=== PATIENT | male | born 1960 | race Caucasian/White ===

== ENCOUNTER → 2016-08-05 | Outpatient (CLI) | payer OTHER ==
[~2016-08-05] MED LIST: HYDC25 PO; HYDR-389 PO; NRN600 PO
== END | disposition home or self-care (01) ==
LOC: C.LABPVFM 15:39
PROVIDERS: ATTEND Physician Assistant
DX: R25.1 Tremor, unspecified (principal)

== ENCOUNTER → 2016-10-20 | Outpatient (CLI) | payer OTHER ==
[2016-10-20 18:20] LABS: ALT/SGPT 33 U/L (12-78); AST/SGOT 20 U/L (15-37); BLOOD UREA NITROGEN 9 mg/dl (7-18); BUN/CREATININE RATIO 12.2 (10-20); CALCIUM 8.7 mg/dl (8.5-10.1); CARBON DIOXIDE 30 mmol/L (21-32); CHLORIDE 101 mmol/L (98-107); CREATININE 0.75 mg/dl (0.60-1.40); GLUCOSE 106 mg/dl (70-99); POTASSIUM 4.1 mmol/L (3.5-5.1); SODIUM 136 mmol/L (136-145)
[2016-10-20 18:23] LABS: ALB/GLOB RATIO 0.8 (0.9-2); ALKALINE PHOSPHATASE 75 U/L (45-117)
[2016-10-21 06:25] LABS: ESTIMATED AVERAGE GLUCOSE 140 mg/dl; HA1C FLAG Normal (Normal)
== END | disposition home or self-care (01) ==
LOC: C.LABPVFM 12:54
PROVIDERS: ATTEND Family Medicine
DX: R73.9 Hyperglycemia, unspecified (principal); R77.1 Abnormality of globulin

== ENCOUNTER → 2017-01-12 | Outpatient (CLI) | payer OTHER ==
[2017-01-12 17:52] LABS: CHOLESTEROL/HDL RATIO 3.4
[2017-01-12 18:09] LABS: RATIO 5.6 mcg/mg (0-30.0)
[2017-01-13 07:08] LABS: ESTIMATED AVERAGE GLUCOSE 140 mg/dl; HA1C FLAG Normal (Normal)
== END | disposition home or self-care (01) ==
LOC: C.LABPVFM 13:52
PROVIDERS: ATTEND Family Medicine
DX: R77.1 Abnormality of globulin (principal); E11.9 Type 2 diabetes mellitus without complications

== ENCOUNTER → 2017-04-19 | Outpatient (CLI) | payer OTHER | END | disposition home or self-care (01) | LOC: C.LABPVFM 13:16 | PROVIDERS: ATTEND Family Medicine | DX: R39.9 Unspecified symptoms and signs involving the genitourinary system (principal) ==

== ENCOUNTER → 2017-05-07 | Outpatient (CLI) | payer OTHER | END | disposition home or self-care (01) | LOC: C.LABPVFM 12:38 | PROVIDERS: ATTEND Family Medicine | DX: R39.9 Unspecified symptoms and signs involving the genitourinary system (principal); A49.8 Other bacterial infections of unspecified site ==

== ENCOUNTER → 2017-05-18 | Outpatient (CLI) | payer OTHER | END | disposition home or self-care (01) | LOC: C.LABPVFM 18:13 | PROVIDERS: ATTEND Nurse Practitioner | DX: R39.9 Unspecified symptoms and signs involving the genitourinary system (principal) ==

== ENCOUNTER → 2017-06-09 | Outpatient (CLI) | payer OTHER | END | disposition home or self-care (01) | LOC: C.LABPVFM 12:15 | PROVIDERS: ATTEND Nurse Practitioner | DX: R31.9 Hematuria, unspecified (principal) ==

== ENCOUNTER → 2017-06-09 | Outpatient (CLI) | payer OTHER | END | disposition home or self-care (01) | LOC: C.PATHSPEC 12:14 | PROVIDERS: ATTEND Nurse Practitioner | DX: R31.9 Hematuria, unspecified (principal) ==

== ENCOUNTER → 2017-06-29 | Outpatient (CLI) | payer OTHER | END | disposition home or self-care (01) | LOC: C.LABPVFM 13:07 | PROVIDERS: ATTEND Nurse Practitioner | DX: R31.9 Hematuria, unspecified (principal) ==

== ENCOUNTER → 2017-06-29 | Outpatient (CLI) | payer OTHER | END | disposition home or self-care (01) | LOC: C.PATHSPEC 13:06 | PROVIDERS: ATTEND Nurse Practitioner | DX: R31.9 Hematuria, unspecified (principal) ==

== ENCOUNTER → 2017-11-05 | Outpatient (CLI) | payer OTHER ==
[~2017-11-05] MED LIST changes: +CIPR-255 PO
[2017-11-05 17:50] LABS: CREATININE 0.75 mg/dl (0.60-1.40)
== END | disposition home or self-care (01) ==
LOC: C.LABPVFM 14:15
PROVIDERS: ATTEND Urology
DX: R31.9 Hematuria, unspecified (principal)

== ENCOUNTER → 2017-11-06 | Outpatient (CLI) | payer OTHER | END | disposition home or self-care (01) | LOC: C.PATHSPEC 17:07 | PROVIDERS: ATTEND Urology | DX: R31.9 Hematuria, unspecified (principal) ==

== ENCOUNTER 2023-03-01 12:14 | Inpatient (IN) ==
[2023-03-01] MEDS ORDERED: KETOROLAC TROMETHAMINE 15 MG/ML VIAL IV ONE (12:53)
[2023-03-01] MEDS ORDERED: MoRPHine SULFATE 10 MG/ML CARP/VIAL IV STA (12:53)
[2023-03-01] MEDS ORDERED: SODIUM CHLORIDE 0.9% 500 ML IV ONE (12:53)
[2023-03-01] MEDS ORDERED: ONDANSETRON INJ 2 MG/ML 2 ML VIAL IV STA (12:53)
--- NOTE | 2023-03-01 12:58 | Emergency Department Note ---
Impression & Plan Kidney stone on left side, Acute UTI, Nausea, Type 2 diabetes mellitus ED Provider Note Provider: Balaji Ibrahim MD DATE OF SERVICE: 03/01/2023 CHIEF COMPLAINT: Left flank pain HISTORY OF PRESENT ILLNESS: Patient is a 62-year-old gentleman history of hypertension, diabetes, essential tremor presenting here today complaining of pain in his left flank region. States a history of some UTIs but woke in the middle the night around 4 AM with pain in the left side. Pain with a little bit of nausea was reported but no other diffuse abdominal pain on the right side on the middle. States it hurts a bit when he urinates. Denies fever or chills. Chronic pain in the lower legs. Denies diarrhea. Denies blood in the urine at this time. Was treated for UTI a month ago. Denies chest pain or shortness of breath. PAST MEDICAL HISTORY: As noted above MEDICATIONS: Reviewed home medication list SOCIAL HISTORY: Non-smoker PHYSICAL EXAM: GENERAL: alert and oriented in no acute distress on stretcher Head: normocephalic and atraumatic EYES: No injection, discharge or icterus. NECK: Trachea midline. ENT: Mucous membranes pink and moist. LUNGS: Airway patent. No retractions HEART: Regular rate and rhythm. No chest wall tenderness ABDOMEN: Soft with tenderness to the left flank region. No significant middle or right-sided abdominal tenderness. SKIN: Acyanotic, warm, dry, without rashes EXTREMITIES: Without swelling, tenderness or deformity NEUROLOGICAL: No focal deficits. No aphasia. No facial droop or slurred speech. Ambulatory. PDMP was checked without noted issue. Patient's laboratory studies and imaging reviewed. Differential includes Renal colic, UTI, appendicitis, diverticulitis, mesenteric ischemia, aortic pathology, infections, inflammatory bowel disease, PUD, biliary pathology, as well as other pathologies. IMPRESSION/MEDICAL DECISION MAKING: Patient with some left flank discomfort. Question possible kidney stone versus given his history of UTIs possible infectious etiology. Lower suspicion for diverticulitis. No significant right-sided tenderness and doubt appendicitis or cholecystitis. Location does not seem to get of cardiac disease. Patient given submission of pain control here With IV morphine, Toradol, Zofran, and IV fluid. Blood obtained here with leukocytosis 16.3. No anemia. No significant electrolyte abnormality signs of renal dysfunction. No evidence of hepatitis or pancreatitis based on labs. Sent for CT scan to evaluate further and per radiology report with evidence of a 6 mm left ureteral calculus Stone without evidence of bowel obstruction or bowel wall thickening. Likely explains his pain. Leukocytosis could be reactive for with his history of UTIs, concerning of this could be infected. Patient is having a good bit of improvement of pain and nausea symptoms now. Urinalysis nitrate positive with leuk esterase concerning for infection. Do note some epithelials in the sample. Sent for culture. Discussed with the patient I would recommend that we monitor him given the infected urine and evidence of kidney stone in the hospital with a leukocytosis. Given a dose of Zosyn for broad coverage. Discussed with him and his he is agreeable to stay for observation and the hospitalist was contacted. Patient at this time does not appear septic and I do not requires emergent urological intervention at this time. DIAGNOSIS: acute UTI, left-sided kidney stone, type 2 diabetes, nausea DISPOSITION: Hospitalist will evaluate Patient was agreeable with this plan. Past Med/Surg History Medical History BPH with obstruction/lower urinary tract symptoms Renal lesion Nephrolithiasis Gout Allergic rhinitis CRPS (complex regional pain syndrome), lower limb Cyst of joint of left hand Dysuria Elevated serum globulin level Former smoker Mixed hyperlipidemia Parkinsonism Tarsal tunnel syndrome Vitamin D deficiency, unspecified Surgical History H/O local excision of skin lesion (09/12/20) Hx of foot surgery Family History Mother Breast cancer, Onset Age: 60 Father No problems noted. Brother No problems noted. Sister No problems noted. Other Has no children Denies family history of Ovarian cancer Prostate cancer Social History Smoking Status: Never smoker Tobacco Type: Cigarettes packs per day: 0.25; Cigarettes Per Day: 4 cigs/day; Second Hand Exposure: No; Do You Dip or Chew Tobacco: No; Hx Alcohol Use: No Hx Substance Use: No Preferred Language: [place] Islander Communication Ability: Effective Visual Impairment: No Limitations Hearing Ability: Normal Stand Up Forklift Operator Required: No Beliefs That Will Affect Care: None marital status: Single Current Living Situation: Alone current occupational status: disabled How many Children do You have: 0 Feels Safe at Home: Yes Childhood Exposure to Second-Hand Smoke: No Diet: regular caffeine: No during the past year weight has: remained stable Dental Care, Regularly: Yes Physical Activity Frequency: Daily Seatbelt Use: always Sunscreen Use: No Do you think of yourself as: straight/heterosexual Gender Identity: Male Assistive Devices: Brace/Splint/Immobilizer and Crutches Allergies Allergies Allergy/AdvReac Type Severity Reaction Status Date / Time No Known Drug Allergies Allergy Verified 01/29/23 14:03 Home Meds Previous Rx's Medication Instructions Recorded lancing device with lancets kit #1 ea 12/17/18 (Contix Lancing Device kit) mirabegron 50 mg tablet,extended 50 mg PO DAILY #30 tabs 08/08/20 release 24 hr (Myrbetriq) oxybutynin chloride 10 mg 10 mg PO DAILY #30 tabs 10/05/20 tablet,extended release 24 hr (Ditropan XL) blood sugar diagnostic (Phase Vision #300 ea 06/25/21 Ultra Test strips) lancets 33 gauge (Contix #300 ea 06/25/21 Lancets) empagliflozin 10 mg tablet 10 mg PO DAILY #90 tabs 04/16/22 (Jardiance) escitalopram oxalate 10 mg tablet See Rx Instructions .Route 04/16/22 .COMPLEX #135 tabs triamterene 37.5 See Rx Instructions .Route 04/16/22 mg-hydrochlorothiazide 25 mg tablet .COMPLEX #90 tabs metformin 500 mg tablet,extended 500 mg PO BID #180 tabs 04/21/22 release 24 hr gabapentin 300 mg capsule 900 mg (3 x 300 mg) PO TID 90 days 07/28/22 #810 caps cephalexin 500 mg capsule 500 mg PO BID #10 caps 09/22/22 simvastatin 10 mg tablet 10 mg PO QPM #90 tabs 09/30/22 hydroxyzine HCl 10 mg tablet 10 - 20 mg (1 - 2 x 10 mg) PO TID 10/29/22 PRN anxiety #180 tabs primidone 50 mg tablet 100 mg (2 x 50 mg) PO TID 90 days 01/02/23 #540 tabs propranolol 160 mg capsule,24 160 mg PO HS #90 caps 01/02/23 hr,extended release Results & Data (ED) Vital Signs Vital Signs - 24 hr 03/01/23 12:20 03/01/23 15:00 03/01/23 15:50 Temperature 36.7 C Temperature Source Temporal Artery Scan Pulse Rate 78 Pulse Rate [Apical] 69 Respiratory Rate 18 16 Respiratory Effort / Characteristics Non-Labored Spontaneous Respiratory Depth Normal Blood Pressure 169/85 H Blood Pressure [Left Arm] 113/59 L Blood Pressure Mean 113 Blood Pressure Mean [Left Arm] 77 Blood Pressure Position Sitting Pulse Oximetry 95 93 93 Oxygen Delivery Method Room Air Room Air Room Air Sepsis Recent Fever Within 48 Hours No Sepsis New/Unexplained Change in Mental Status No Sepsis Action Taken by Nursing No Action Required Laboratory Data 03/01/23 12:37 03/01/23 12:37 Lab Results 03/01/23 03/01/23 Range/Units 12:37 15:08 WBC 16.30 H (4.8-10.8) K/ul RBC 5.27 (4.70-6.10) M/uL Hgb 15.9 (14.0-18.0) g/dl Hct 47.7 (42.0-52.0) % MCV 90.5 (80.0-100.0) fL MCH 30.2 (25.0-34.0) pg MCHC 33.3 (32.0-36.0) g/dL RDW Std Deviation 44.3 (36.4-46.3) fL RDW Coeff of Chevy 13.2 (11.5-14.5) % Plt Count 228 (130-400) K/uL MPV 10.0 (9.4-12.4) fL Immature Gran % (Auto) 0.5 % Neut % (Auto) 83.1 % Lymph % (Auto) 7.2 % Fleming % (Auto) 8.3 % Eos % (Auto) 0.6 % Baso % (Auto) 0.3 % Neut # (Auto) 13.55 H (1.40-6.50) K/uL Lymph # (Auto) 1.18 L (1.20-3.40) K/uL Fleming # (Auto) 1.35 H (0.11-0.59) K/uL Eos # (Auto) 0.09 (0.00-0.50) K/uL Baso # (Auto) 0.05 (0.00-0.20) K/uL Immature Gran # (Auto) 0.08 (0.01-0.20) K/uL Sodium 135 L (136-145) mmol/L Potassium 3.9 (3.5-5.1) mmol/L Chloride 99 (98-107) mmol/L Carbon Dioxide 30 (21-32) mmol/L Anion Gap 6 (3-11) BUN 19 (6-23) mg/dl Creatinine 0.78 (0.6-1.4) mg/dl Est Cr Clr Drug Dosing 138.4 ml/min Est GFR ( Amer) 110.6 ml/min Est GFR (Non-Af Amer) 95.4 ml/min BUN/Creatinine Ratio 24.4 H (10-20) Glucose 165 H (70-99(Fasting)) mg/dl Calcium 9.5 (8.6-10.3) mg/dl Total Bilirubin 0.8 (0.2-1.0) mg/dl AST 15 (13-39) U/L ALT 16 (7-52) U/L Alkaline Phosphatase 72 (34-104) U/L Total Protein 7.7 (6.0-8.3) gm/dl Albumin 4.3 (3.4-5.0) gm/dl Globulin 3.4 (2.5-4.0) gm/dl Albumin/Globulin Ratio 1.3 (0.9-2) Lipase 12 (11-82) U/L Urine Color Yellow Urine Appearance Turbid A (Clear) Urine pH 6.5 (4.5-7.5) Ur Specific Barnes > 1.045 H (1.000-1.030) Urine Protein 1+ H (Negative) Urine Glucose (UA) Trace H (Negative) Urine Ketones Negative (Negative) Urine Blood 2+ H (Negative) Urine Nitrite Positive A (Negative) Urine Bilirubin Negative (Negative) Urine Urobilinogen Negative (Negative) Ur Leukocyte Esterase 3+ H (Negative) Urine WBC (Auto) >30 H (0-5) /hpf Urine RBC (Auto) 10-30 H (0-4) /hpf U Hyaline Cast (Auto) 1-5 (0-5) /lpf U Epithel Cells (Auto) >30 H (0-5) /lpf Urine Bacteria (Auto) 4+ H (Negative) Urine Yeast Not Reportable Administered Medications Piperacillin Sod/Tazobactam Sod (Zosyn) 4.5 gm in 100 mls @ 200 mls/hr IV NOW ONE Stop: 03/01/23 16:22 Last Admin: 03/01/23 16:08 Dose: 200 mls/hr Documented By: QIAN Sodium Chloride (Nss) 1,000 mls @ 999 mls/hr IV .Q1H1M ONE Stop: 03/01/23 16:55 Last Admin: 03/01/23 16:09 Dose: 999 mls/hr Documented By: QIAN Discontinued Medications Sodium Chloride (Nss) 500 mls @ 999 mls/hr IV .Q31M ONE Stop: 03/01/23 13:23 Last Infusion: 03/01/23 14:00 Dose: Infused Documented By: Admin: 03/01/23 13:08 Dose: 999 mls/hr Documented By: ANTONY Sodium Chloride (Nss) 1,000 mls @ 999 mls/hr IV .Q1H1M ONE Stop: 03/01/23 14:35 Last Admin: 03/01/23 13:40 Dose: 999 mls/hr Documented By: ANTONY Ioversol (Optiray 320 500ml) 88 ml IV ONCE ONE Stop: 03/01/23 13:30 Last Admin: 03/01/23 13:30 Dose: 88 ml Documented By: DEBI Ketorolac Tromethamine (Ketorolac Tromethamine 15 Mg/Ml Vial) 10 mg IV NOW ONE Stop: 03/01/23 12:54 Last Admin: 03/01/23 13:08 Dose: 10 mg Documented By: ANTONY Morphine Sulfate (Morphine Sulfate 10 Mg/Ml Carp/Vial) 6 mg IV NOW STA Stop: 03/01/23 12:54 Last Admin: 03/01/23 13:08 Dose: 6 mg Documented By: ANTONY Ondansetron HCl (Ondansetron Inj 2 Mg/Ml 2 Ml Vial) 4 mg IV NOW STA Stop: 03/01/23 12:54 Last Admin: 03/01/23 13:08 Dose: 4 mg Documented By: ANTONY Imaging Data Radiologist's Impression: Abdomen/Pelvis CT 03/01/23 12:[address] WITH IV CONTRAST CT DOSE: 1479.25 mGy.cm HISTORY: Acute left-sided flank pain left flank pain, ?stone TECHNIQUE: Multiaxial CT images of the abdomen and pelvis were performed following the IV administration of 88 cc of Optiray, A dose lowering technique was utilized adhering to the principles of ALARA. COMPARISON STUDY: CT 10/31/2019 common MRI abdomen 11/29/2019. FINDINGS: Mild cardiomegaly. Clear lung bases. There is no free air. Unremarkable spleen, pancreas and adrenal glands. Cortical cholelithiasis. Unremarkable liver. Patent portal vein. There are several nonobstructing calculi within the right kidney measuring up to 4 mm. Delayed left-sided nephrogram with [id number] hydroureteronephrosis secondary to an obstructing 5 x 6 x 6 mm ureteral calculus at the level of L3. There are a few scattered unchanged cysts of the kidneys measuring up to 1.7 cm on the left. Mild urothelial thickening of the left renal collecting system and ureter. Urinary bladder wall thickening with partial distention. Mild prostatomegaly. Atherosclerosis of the aorta. No lymphadenopathy. No bowel obstruction or bowel wall thickening. No ascites or mesenteric inflammation. Moderate fecal retention. Normal appendix. No acute fracture. Anterolisthesis L4 on L5 of 1.7 cm, likely secondary to chronic facet arthrosis. 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 Benign-appearing sclerotic changes of the upper sacrum. IMPRESSION: 1. Mild to moderate left-sided hydroureteronephrosis with delayed nephrogram secondary to an obstructing 6 mm calculus of the left ureter at the level of L3. 2. Nonobstructing right nephrolithiasis. 3. No bowel obstruction or bowel wall thickening. 4. Additional findings as above. ACT 112: Negative or not required by law. The above report was generated using voice recognition software. It may contain grammatical, syntax or spelling errors. Electronically signed by: Uri Cohen M.D. 03/01/2023 1:48 PM Discharge Plan Visit Data Chief Complaint: Flank Pain Stated Complaint: SIDE/FLANK PAIN ED Provider: Balaji Ibrahim Discharge Problem: Kidney stone on left side, Acute UTI, Nausea, Type 2 diabetes mellitus Patient Disposition: Being Evaluated by Hospitalist Forms Stand Alone Forms: My [facility] Prescriptions Prescriptions: No Action (DME) lancing device with lancets [OneTouch DelmySBX Lanc Device] kit See Dose Instructions .ROUTE .MEDSUPPLY Qty: 1 0RF Dose Instruction: As directed Rx Instructions: As directed oxybutynin chloride [Ditropan XL] 10 mg tablet extended release 24hr 10 mg PO DAILY Qty: 30 2RF (DME) OneTouch Ultra Test Strip See Rx Instructions .Route Qty: 300 3RF Rx Instructions: TID and prn Dx:E11.9 (DME) lancets [OneTouch Delica Lancets] 33 gauge misc See Dose Instructions .ROUTE .MEDSUPPLY Qty: 300 3RF Dose Instruction: As directed Rx Instructions: Test blood sugar TID and prn Jardiance 10 mg tablet 10 mg PO DAILY Qty: 90 3RF triamterene-hydrochlorothiazid 37.5-25 mg tablet See Rx Instructions .ROUTE .COMPLEX Qty: 90 3RF Dose Instruction: TAKE 1 TABLET BY MOUTH EVERY DAY Rx Instructions: TAKE 1 TABLET BY MOUTH EVERY DAY escitalopram oxalate 10 mg tablet See Rx Instructions .ROUTE .COMPLEX Qty: 135 3RF Dose Instruction: TAKE 1 AND 1/2 TABLET BY MOUTH ONCE DAILY. Rx Instructions: TAKE 1 AND 1/2 TABLET BY MOUTH ONCE DAILY. metformin 500 mg tablet extended release 24 hr 500 mg PO BID Qty: 180 3RF gabapentin 300 mg capsule 900 mg PO TID 90 Days Qty: 810 3RF simvastatin 10 mg tablet 10 mg PO QPM Qty: 90 3RF hydroxyzine HCl 10 mg tablet 10 - 20 mg PO TID PRN (Reason: anxiety) Qty: 180 3RF Myrbetriq 50 mg tablet extended release 24 hr 50 mg PO DAILY Qty: 30 1RF primidone 50 mg tablet 100 mg PO TID 90 Days Qty: 540 3RF propranolol 160 mg capsule,extended release 24 hr 160 mg PO HS Qty: 90 3RF cephalexin 500 mg capsule 500 mg PO BID Qty: 10 0RF Referrals Referrals: You Robledo DO [Primary Care Provider] -
[2023-03-01 13:04] LABS: Basophils # (auto) 0.05 K/uL (0.00-0.20); Basophils % (auto) 0.3 %; Eosinophils # (auto) 0.09 K/uL (0.00-0.50); Eosinophils % (auto) 0.6 %; Hematocrit (blood only) 47.7 % (42.0-52.0); Hemoglobin 15.9 g/dl (14.0-18.0); Immature Granulocytes # (auto) 0.08 K/uL (0.01-0.20); Immature Granulocytes % (auto) 0.5 %; Lymphocytes # (auto) 1.18 K/uL (1.20-3.40); Lymphocytes % (auto) 7.2 %; Mean Corpuscular Hemoglobin 30.2 pg (25.0-34.0); Mean Corpuscular Hgb Conc 33.3 g/dL (32.0-36.0); Mean Corpuscular Volume 90.5 fL (80.0-100.0); Monocytes # (auto) 1.35 K/uL (0.11-0.59); Monocytes % (auto) 8.3 %; Neutrophils # (auto) 13.55 K/uL (1.40-6.50); Neutrophils % (auto) 83.1 %; Platelet Count 228 K/uL (130-400); RDW Coefficient of Variation 13.2 % (11.5-14.5); RDW Standard Deviation 44.3 fL (36.4-46.3); Red Blood Count 5.27 M/uL (4.70-6.10)
[2023-03-01 13:15] LABS: Albumin Globulin Ratio 1.3 (0.9-2); Albumin Level 4.3 gm/dl (3.4-5.0); BUN Creatinine Ratio 24.4 (10-20); Bilirubin,Total 0.8 mg/dl (0.2-1.0); Calcium 9.5 mg/dl (8.6-10.3); Creatinine Clr Calc Pharmacy 138.4 ml/min; Est GFR (African American) 110.6 ml/min; Est GFR (Non-African American) 95.4 ml/min; Globulin 3.4 gm/dl (2.5-4.0); Potassium 3.9 mmol/L (3.5-5.1); Total Protein 7.7 gm/dl (6.0-8.3)
[2023-03-01] MEDS ORDERED: OPTIRAY 320 500ml IV ONE (13:29)
[2023-03-01] MEDS ORDERED: SODIUM CHLORIDE 0.9% 1,000 ML IV ONE ×2 (13:35→15:55)
--- NOTE | 2023-03-01 13:50 | CT Scan Report ---
ABDOMEN AND PELVIS CT WITH IV CONTRAST CT DOSE: 1479.25 mGy.cm HISTORY: Acute left-sided flank pain left flank pain, ?stone TECHNIQUE: Multiaxial CT images of the abdomen and pelvis were performed following the IV administrat ion of 88 cc of Optiray, A dose lowering technique was utilized adhering to the principles of ALARA. COMPARISON STUDY: CT 10/31/2019 common MRI abdomen 11/29/2019. FINDINGS: Mild cardiomegaly. Clear lung bases. There is no free air. Unremarkable spleen, pancreas an d adrenal glands. Cortical cholelithiasis. Unremarkable liver. Patent portal vein. There are several nonobstructing calculi within the right kidney measuring up to 4 mm. Delayed left-sided nephrogram wi th [id number] hydroureteronephrosis secondary to an obstructing 5 x 6 x 6 mm ureteral calculus at the level of L3. There are a few scattered unchanged cysts of the kidneys measuring up to 1.7 cm o n the left. Mild urothelial thickening of the left renal collecting system and ureter. Urinary bladde r wall thickening with partial distention. Mild prostatomegaly. Atherosclerosis of the aorta. No lymp hadenopathy. No bowel obstruction or bowel wall thickening. No ascites or mesenteric inflammation. Moderate fecal retention. Normal appendix. No acute fracture. Anterolisthesis L4 on L5 of 1.7 cm, likely secondary t o chronic facet arthrosis. 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 Benign-appearing sclerotic changes of the upper sacrum. IMPRESSION: 1. Mild to moderate left-sided hydroureteronephrosis with delayed nephrogram secondary to an obstruct ing 6 mm calculus of the left ureter at the level of L3. 2. Nonobstructing right nephrolithiasis. 3. No bowel obstruction or bowel wall thickening. 4. Additional findings as above. ACT 112: Negative or not required by law. The above report was generated using voice recognition software. It may contain grammatical, syntax o r spelling errors. Electronically signed by: Uri Cohen M.D. 03/01/2023 1:48 PM
[2023-03-01 15:25] LABS: Appearance Urine Turbid (Clear); Bacteria Urine Automated 4+ (Negative); Bilirubin Urine Negative (Negative); Blood Urine 2+ (Negative); Color Urine Yellow; Epithelial Cell Urine Auto >30 /lpf (0-5); Glucose Urine UA Trace (Negative); Ketones Urine Negative (Negative); Leukocyte Esterase Urine 3+ (Negative); Nitrite Urine Positive (Negative); Protein Urine 1+ (Negative); Specific Gravity Urine > 1.045 (1.000-1.030); Urobilinogen Urine Negative (Negative); WBC Urine Automated >30 /hpf (0-5); pH Urine 6.5 (4.5-7.5)
[2023-03-01] MEDS ORDERED: PIPERACILLIN/TAZOBACTAM 4.5 GM/100 ML BAG IV ONE (15:53)
--- NOTE | 2023-03-01 16:07 | History & Physical Report ---
Date of Service March 01, 2023 Assessment & Plan (1) Kidney stone on left side: Plan: Acute onset of sharp, left-sided flank pain that woke him from sleep at 0400 on 03/01 Hx of kidney stones Leukocytosis at 16.30; afebrile Abdomen/pelvic CT revealed obstructing 6 mm calculus of the left ureter; mildmoderate left-sided hydroureteronephrosis Reach out to urology Plan is to have stent placed with Dr. Smith on 03/01 Keep patient n.p.o. for now Acetaminophen 650 mg p.o. q4h as needed for pain 13 Dilaudid 0.51.0 IV q4h as needed for breakthrough pain Urine strainer ordered Continue daily oxybutynin Continue IV fluids; Plasma-Lyte at 100mL/hr x 2 Appreciate urology consult A.m. CBC, BMP, A1c (2) Acute UTI: Plan: Clinically, patient endorses burning with urination UA positive on arrival Leukocytosis at 16.30; afebrile Past urine cultures that showed E. coli with some resistance to beta-lactams and fluoroquinolones Started on Zosyn 4.5 g IV in the ED Switch to ceftriaxone 2 g IV daily; antibiotics de-escalated as patient does not appear septic, and is having minimal urinary discomfort (3) Type 2 diabetes mellitus: Plan: Last A1c 7.2% on 09/26/2022 Patient reports he has been on Jardiance for the past 2 years Hold metformin, Jardiance Continue gabapentin for neuropathy BSG ACHS; q6h while NPO Lantus 11u BID SSI w/ goal range 110-150mg/dL, CF 20, carb ratio 10 N.p.o. now, then advance to T2DM diet as tolerated Adjust regimen as needed AM A1c (4) Nausea: Plan: Zofran 4 mg IV q6h as needed for nausea (5) Essential tremor: Plan: Continue primidone (6) Anxiety: Plan: Continue escitalopram Continue hydroxyzine as needed Plan [facility]position: [facility] Full code Keep n.p.o. prior to stent placement VTE PPx: SCDs (will defer chemical DVT PPx until after stent placement) History of Present Illness Chief Complaint: L-sided flank pain Primary Care Provider: DO Librado Khanna is a 62-year-old male with PMH of anxiety, essential tremor, obesity, diabetes, and hypertension syndrome. He presented for acute onset of left flank pain that woke him up at 0400 on 03/01. He describes the pain as >10/10 at its worst; sharp, stabbing pain that is constant. No radiation. He took 1 Tylenol 500 mg this morning. Pain is exacerbated when lying down and sitting still; better with walking. Hx of kidney stones in the past, but he cannot recall when the last kidney stone was. No history of urologic intervention such as lithotripsy or stenting. No changes in diet. He reports he does not eat a very salty diet. He has not had anything to eat today. He reports he is took all of his morning medications. Of note, he has a history of diabetes and has been taking Jardiance for the past 2 years. History of diabetes on Jardiance x 2 years. He denies history of smoking, tobacco use, alcohol use, vaping, and recreational drug use. Mild hypertension at 113/59 at time of admission; vitals otherwise stable. ED course: Morphine 6 mg IV Toradol 10 mg IV Zofran 4 mg IV Zosyn 4.5 g IV NSS 2500 mL ROS: Patient endorses chills, nausea, bloating, burning with urination, neuropathy (ongoing) Patient denies fever, sweating, CP, pleuritic CP, vomiting, diarrhea, hematuria, urinary retention, saddle anesthesia. Allergies Allergy/AdvReac Type Severity Reaction Status Date / Time No Known Drug Allergies Allergy Verified 01/29/23 14:03 Home Medications Medication Instructions Recorded Confirmed Type lancing device with lancets kit #1 ea 12/17/18 01/29/23 Rx ([facility] Lancing Device kit) mirabegron 50 mg tablet,extended 50 mg PO DAILY #30 tabs 08/08/20 03/01/23 Rx release 24 hr (Myrbetriq) oxybutynin chloride 10 mg 10 mg PO DAILY #30 tabs 10/05/20 03/01/23 Rx tablet,extended release 24 hr (Ditropan XL) blood sugar diagnostic ([employer] #300 ea 06/25/21 01/29/23 Rx Ultra Test strips) lancets 33 gauge ([facility] #300 ea 06/25/21 01/29/23 Rx Lancets) empagliflozin 10 mg tablet 10 mg PO DAILY #90 tabs 04/16/22 03/01/23 Rx (Jardiance) escitalopram oxalate 10 mg tablet See Rx Instructions .Route 04/16/22 03/01/23 Rx .COMPLEX #135 tabs triamterene 37.5 See Rx Instructions .Route 04/16/22 03/01/23 Rx mg-hydrochlorothiazide 25 mg tablet .COMPLEX #90 tabs metformin 500 mg tablet,extended 500 mg PO BID #180 tabs 04/21/22 03/01/23 Rx release 24 hr gabapentin 300 mg capsule 900 mg (3 x 300 mg) PO TID 90 days 07/28/22 03/01/23 Rx #810 caps simvastatin 10 mg tablet 10 mg PO QPM #90 tabs 09/30/22 03/01/23 Rx hydroxyzine HCl 10 mg tablet 10 - 20 mg (1 - 2 x 10 mg) PO TID 10/29/22 03/01/23 Rx PRN anxiety #180 tabs primidone 50 mg tablet 100 mg (2 x 50 mg) PO TID 90 days 01/02/23 03/01/23 Rx #540 tabs propranolol 160 mg capsule,24 160 mg PO HS #90 caps 01/02/23 03/01/23 Rx hr,extended release Past Med/Surg History Medical History BPH with obstruction/lower urinary tract symptoms Renal lesion Nephrolithiasis Gout Allergic rhinitis CRPS (complex regional pain syndrome), lower limb Cyst of joint of left hand Dysuria Elevated serum globulin level Former smoker Quit 1994 Mixed hyperlipidemia Parkinsonism Tarsal tunnel syndrome Vitamin D deficiency, unspecified Surgical History H/O local excision of skin lesion (09/12/20) 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 Brother No problems noted. Sister No problems noted. Other Has no children Denies family history of Ovarian cancer Prostate cancer Social History Smoking Status: Former smoker Tobacco Type: Cigarettes packs per day: 0.25; Cigarettes Per Day: 4 cigs/day; Second Hand Exposure: No; Do You Dip or Chew Tobacco: No; Hx Alcohol Use: No Hx Substance Use: No Preferred Language: Georgian Communication Ability: Effective Visual Impairment: No Limitations Hearing Ability: Normal Applied Psychology Teacher Required: No Beliefs That Will Affect Care: None marital status: Single Current Living Situation: Alone current occupational status: disabled How many Children do You have: 0 Feels Safe at Home: Yes Childhood Exposure to Second-Hand Smoke: No Diet: regular caffeine: No during the past year weight has: remained stable Dental Care, Regularly: Yes Physical Activity Frequency: Daily Seatbelt Use: always Sunscreen Use: No Do you think of yourself as: straight/heterosexual Gender Identity: Male Assistive Devices: Brace/Splint/Immobilizer and Crutches Review of Systems Review of Systems: See HPI above Physical Exam Physical Exam: General: no acute distress; pleasant affect; diaphoretic; non-toxic appearing; well-nourished; cooperative HEENT: normocephalic, atraumatic; no scleral icterus; moist mucus membrane; vision and hearing grossly intact Neck: supple; no lymphadenopathy; trachea midline Skin: warm, dry without signs of tenting; no cyanosis; no rashes, bruising, lesions, or erythema noted CV: chest wall NTP; RRR; S1/S2 normal; no murmurs/rubs/gallops; pulses intact and symmetric at radial, DP, and PT Lungs: no acute respiratory distress; symmetrical chest wall expansion; clear breath sounds across all lung bullock w/o adventitious sounds; no wheezing ABD: Soft, NTP; BS present; no rebound/guarding; no ascites; mild distention secondary to body habitus; negative CVA tenderness bilaterally; left flank NTP MSK: no tics or fasciculations; no edema noted in the LEs b/l, nonerythematous Neuro: A&Ox3; normal mood and affect; fluent speech Results & Data Results & Data Vital Signs (Past 12 Hours) Vital Signs Temp Pulse Pulse Resp BP BP Pulse Ox 03/01/23 15:50 69 16 113/59 L 93 03/01/23 15:00 93 03/01/23 12:20 36.7 C 78 18 169/85 H 95 O2 Del Method 03/01/23 15:50 Room Air 03/01/23 15:00 Room Air 03/01/23 12:20 Room Air Laboratory Results Abnormal lab results 03/01/23 03/01/23 Range/Units 12:37 15:08 WBC 16.30 H (4.8-10.8) K/ul Neut # (Auto) 13.55 H (1.40-6.50) K/uL Lymph # (Auto) 1.18 L (1.20-3.40) K/uL [place] # (Auto) 1.35 H (0.11-0.59) K/uL Sodium 135 L (136-145) mmol/L BUN/Creatinine Ratio 24.4 H (10-20) Glucose 165 H (70-99(Fasting)) mg/dl Urine Appearance Turbid A (Clear) Ur Specific [place] > 1.045 H (1.000-1.030) Urine Protein 1+ H (Negative) Urine Glucose (UA) Trace H (Negative) Urine Blood 2+ H (Negative) Urine Nitrite Positive A (Negative) Ur Leukocyte Esterase 3+ H (Negative) Urine WBC (Auto) >30 H (0-5) /hpf Urine RBC (Auto) 10-30 H (0-4) /hpf U Epithel Cells (Auto) >30 H (0-5) /lpf Urine Bacteria (Auto) 4+ H (Negative) Diagnostic Findings Abdomen/Pelvis CT 03/01/23 12:[address] WITH IV CONTRAST CT DOSE: 1479.25 mGy.cm HISTORY: Acute left-sided flank pain left flank pain, ?stone TECHNIQUE: Multiaxial CT images of the abdomen and pelvis were performed following the IV administration of 88 cc of Optiray, A dose lowering technique was utilized adhering to the principles of ALARA. COMPARISON STUDY: CT 10/31/2019 common MRI abdomen 11/29/2019. FINDINGS: Mild cardiomegaly. Clear lung bases. There is no free air. Unremarkable spleen, pancreas and adrenal glands. Cortical cholelithiasis. Unremarkable liver. Patent portal vein. There are several nonobstructing calculi within the right kidney measuring up to 4 mm. Delayed left-sided nephrogram with [id number] hydroureteronephrosis secondary to an obstructing 5 x 6 x 6 mm ureteral calculus at the level of L3. There are a few scattered unchanged cysts of the kidneys measuring up to 1.7 cm on the left. Mild urothelial thickening of the left renal collecting system and ureter. Urinary bladder wall thickening with partial distention. Mild prostatomegaly. Atherosclerosis of the aorta. No lymphadenopathy. No bowel obstruction or bowel wall thickening. No ascites or mesenteric inflammation. Moderate fecal retention. Normal appendix. No acute fracture. Anterolisthesis L4 on L5 of 1.7 cm, likely secondary to chronic facet arthrosis. 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 Benign-appearing sclerotic changes of the upper sacrum. IMPRESSION: 1. Mild to moderate left-sided hydroureteronephrosis with delayed nephrogram secondary to an obstructing 6 mm calculus of the left ureter at the level of L3. 2. Nonobstructing right nephrolithiasis. 3. No bowel obstruction or bowel wall thickening. 4. Additional findings as above. ACT 112: Negative or not required by law. The above report was generated using voice recognition software. It may contain grammatical, syntax or spelling errors. Electronically signed by: Uri Cohen M.D. 03/01/2023 1:48 PM Code Status & VTE Plan Code Status Full code VTE Prophylaxis Plan VTE Prophylaxis will be ordered: Yes Supervising Physician Co-Signing Physician Notes Patient seen and examined, chart reviewed, case discussed with Julien Streeter, PAC and I agree with the assessment and plan as above except as otherwise noted Labs and images reviewed Librado is a 62-year-old male with a past medical history of type 2 diabetes, Tinoco's disease, essential tremor who presents for ongoing pain and an obstructive hydronephrosis due to 6 mm calculus without ANGE. He was recommended for medical management due to medical comorbidities/DM2 and possible underlying UTI. He is seen at the bedside, he reports he has had UTIs in the past with burning/hematuria although does not feel like he has this currently. Mostly has flank pain which is greatly improved after receiving pain control. He denies hematuria, dysuria, polyuria recently. Denies fever/chills/sweats. No lightheadedness or dizziness. Diminished appetite due to pain and he has not eaten anything since yesterday evening. No chest pain or chest pressure. No leg swelling. Mild LLQ TTP without rebound/guarding post-morphine. Pain was 10/10 earlier, is down to 24 and tolerable at time of admitting assessment. CTA/P: Mild to moderate left-sided hydro, obstructing 6 mm calculus at the left ureter. Nonobstructing right nephrolithiasis. Obstructing left nephrolithiasis with hydronephrosis: 6 mm calculus. Urology consulted, anticipate stent placement tonight. Associated suspected ANGE, patient is not toxic and is not septic appearing but does have a leukocytosis and reasonable to cover with empiric antibiotics. Given Zosyn in the ER due to slightly increased risk with age and comorbid diabetes, prior cultures reviewed and has had multiple E. coli UTIs all of these have been sensitive to Rocephin, resistant to fluoroquinolone. As he is not toxic appearing, no history of MDRO, is not febrile will de-escalate to Rocephin for stone associated complicated UTI. UCx pending. No ANGE. Hyperglycemic at 165, metformin/empagliflozin held patient converted to basal bolus weight-based while inpatient. Basal dose reduced 30% while NPO. If patient has recurrent UTIs outside of stones alternative antiglycemic dapagliflozin reasonable target due to risk of recurrent UTIs. Agree with assessment and management above PG Care Time/CCT Total # of Minutes Spent Total Time Spent with Patient: Total time spent is greater than 50% in coordination of care (as documented) at patient's floor/unit and/or counseling patient: C[place] [address] INT INP/OBS CARE 2/55MIN Patient Type Established Medical Decision Making Moderate Complexity Diagnoses Kidney stone on left side N20.0 Acute UTI N39.0 Type 2 diabetes mellitus E11.9 Nausea R11.0 Essential tremor G25.0 Anxiety F41.9
[2023-03-01] MEDS ORDERED: GLUCAGON FOR INJ 1 MG VIAL SQ PRN (17:02)
[2023-03-01] MEDS ORDERED: GLUCOSE 40% GEL 15 GM TUBE PO PRN (17:02)
[2023-03-01] MEDS ORDERED: DEXTROSE 50% 50 ML SYRINGE IV PRN (17:02)
[2023-03-01] MEDS ORDERED: GLUCOSE 10 TAB/TUBE PO PRN (17:02)
[2023-03-01] MEDS ORDERED: CARBOHYDRATES FOR HYPOGLYCEMIA PO PRN (17:02)
--- NOTE | 2023-03-01 17:18 | Anesthesiology Consultation ---
Date of Service March 01, 2023 Assessment & Plan Chart Review Chart Review: Acceptable Risk for Surgery and Patient NOT seen in Pre Admission Testing Consults Requested none ASA [id number] Proposed Anesthesia Anesthesia Type: MAC History Height/Weight Height: 6 ft 4 in Weight: 125.4 kg Allergies Allergy/AdvReac Type Severity Reaction Status Date / Time No Known Drug Allergies Allergy Verified 01/29/23 14:03 Medications Home Medications Medication Instructions Recorded Confirmed Last Taken lancing device with lancets kit #1 ea 12/17/18 01/29/23 Unknown ([employer] Lancing Device kit) mirabegron 50 mg tablet,extended 50 mg PO DAILY #30 tabs 08/08/20 03/01/23 03/01/23 release 24 hr (Myrbetriq) oxybutynin chloride 10 mg 10 mg PO DAILY #30 tabs 10/05/20 03/01/23 03/01/23 tablet,extended release 24 hr (Ditropan XL) blood sugar diagnostic ([employer] #300 ea 06/25/21 01/29/23 Unknown Ultra Test strips) lancets 33 gauge ([employer] #300 ea 06/25/21 01/29/23 Unknown Lancets) empagliflozin 10 mg tablet 10 mg PO DAILY #90 tabs 04/16/22 03/01/23 03/01/23 (Jardiance) escitalopram oxalate 10 mg tablet See Rx Instructions .Route 04/16/22 03/01/23 03/01/23 .COMPLEX #135 tabs triamterene 37.5 See Rx Instructions .Route 04/16/22 03/01/23 03/01/23 mg-hydrochlorothiazide 25 mg tablet .COMPLEX #90 tabs metformin 500 mg tablet,extended 500 mg PO BID #180 tabs 04/21/22 03/01/23 03/01/23 release 24 hr gabapentin 300 mg capsule 900 mg (3 x 300 mg) PO TID 90 days 07/28/22 03/01/23 03/01/23 #810 caps simvastatin 10 mg tablet 10 mg PO QPM #90 tabs 09/30/22 03/01/23 Unknown hydroxyzine HCl 10 mg tablet 10 - 20 mg (1 - 2 x 10 mg) PO TID 10/29/22 03/01/23 03/01/23 PRN anxiety #180 tabs primidone 50 mg tablet 100 mg (2 x 50 mg) PO TID 90 days 01/02/23 03/01/23 03/01/23 #540 tabs propranolol 160 mg capsule,24 160 mg PO HS #90 caps 01/02/23 03/01/23 Unknown hr,extended release NPO Date Last Intake of Fluids: 03/01/23 Time Last Intake of Fluids: 14:00 Date Last Intake of Solids: 02/28/23 Time Last Intake of Solids: 17:00 Past Medical History Medical History BPH with obstruction/lower urinary tract symptoms Renal lesion Nephrolithiasis Gout Allergic rhinitis CRPS (complex regional pain syndrome), lower limb Cyst of joint of left hand Dysuria Elevated serum globulin level Former smoker Quit 1994 Mixed hyperlipidemia Parkinsonism Tarsal tunnel syndrome Vitamin D deficiency, unspecified NIDDM obese ASCVD Aorta HTN Exercise / Class Metabolic Activity III < 4 Walking/Shop/Light housework Past Family History Family History Mother , Passed in 80's of heart disease Breast cancer, Onset Age: 60 Mastectomy Father , Passed in 80's of Brain Cancer No problems noted. Brother No problems noted. Sister No problems noted. 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) Hx of foot surgery left leg x 4 Past Anesthesia History No Hx of Anesthesia Complications and No Family Hx of Anesthesia Complications History of PONV No Hx of PONV and No Hx of Motion Sickness Social History Smoking Status: Former smoker Smoking cigarettes per day: 4 cigs/day Do You Dip or Chew Tobacco: No Hx Alcohol Use: No Hx Substance Use: No Physical Exam Vital Signs Last Vital Signs Temp 36.7 C 03/01/23 12:20 Pulse 65 03/01/23 17:08 Resp 16 03/01/23 15:50 BP 113/59 L 03/01/23 15:50 Pulse Ox 93 03/01/23 15:50 O2 Del Method Room Air 03/01/23 15:50 Testing Laboratory Results 03/01/23 12:37 03/01/23 12:37 Urine Color Yellow 03/01/23 15:08 Urine Appearance Turbid (Clear) A 03/01/23 15:08 Urine pH 6.5 (4.5-7.5) 03/01/23 15:08 Ur Specific [place] > 1.045 (1.000-1.030) H 03/01/23 15:08 Urine Protein 1+ (Negative) H 03/01/23 15:08 Urine Glucose (UA) Trace (Negative) H 03/01/23 15:08 Urine Ketones Negative (Negative) 03/01/23 15:08 Urine Nitrite Positive (Negative) A 03/01/23 15:08 Ur Leukocyte Esterase 3+ (Negative) H 03/01/23 15:08 Urine WBC (Auto) >30 /hpf (0-5) H 03/01/23 15:08 Urine RBC (Auto) 10-30 /hpf (0-4) H 03/01/23 15:08 U Hyaline Cast (Auto) 1-5 /lpf (0-5) 03/01/23 15:08 U Epithel Cells (Auto) >30 /lpf (0-5) H 03/01/23 15:08 Urine Bacteria (Auto) 4+ (Negative) H 03/01/23 15:08
--- NOTE | 2023-03-01 17:26 | Communication Note ---
Date of Service: March 01, 2023 HONEY-RANDY @ 66
--- NOTE | 2023-03-01 17:37 | Urology Consultation ---
Date of Consultation March 01, 2023 Assessment & Plan (1) Acute UTI: (2) Kidney stone on left side: Plan We reviewed the findings of his left ureteral stone and concern for urinary tract infection. Currently he is hemodynamically stable, but to prevent deterioration/worsening infection, I would recommend that we proceed for cystoscopy, left retrograde pyelogram and left ureteral stent placement. We discussed risks and benefits of the surgery. We discussed risks of bleeding, infection, injury to the urinary tract, need for additional procedures, inability to place the stent. He expressed understanding and willingness to proceed. History of Present Illness Reason for Consultation: Left ureteral stone, UTI Attending Physician: Julien Streeter PA-C. Vasu Yeh MD History of Present Illness This is a 62-year-old male with prior history of nephrolithiasis, urinary tract infections, urinary urgency. He presented to the emergency department on 03/01/2023 with acute onset of left-sided flank pain. He has not had overt fevers or chills, however does have a history of urinary tract infections and recently had symptoms of one such infection. Urology was consulted for concern of an infected, obstructing stone. He reports his pain has improved since getting pain medications in the ED. He has had stones in the past but has never required surgical intervention. Workup in the emergency department was notable for leukocytosis (WBC 16.30), glucose was elevated at 165. Creatinine was within normal limits at 0.78. Urinalysis was notable for 2+ blood, positive nitrites, 3+ leukocyte esterase, 4+ bacteria. CT scan of the abdomen and pelvis was performed. I independently reviewed these images. Both kidneys are in normal position. There is hydronephrosis of the left kidney extending down to a 6 mm stone in the mid left ureter. There is mild perinephric stranding on the left side. He has punctate nonobstructing stones on the right kidney. I do not appreciate any other ureteral stones. His bladder is slightly distended. His prostate is normal in size. Allergies Allergy/AdvReac Type Severity Reaction Status Date / Time No Known Drug Allergies Allergy Verified 01/29/23 14:03 Home Medications Medication Instructions Recorded Confirmed Type lancing device with lancets kit #1 ea 12/17/18 01/29/23 Rx ([employer] Lancing Device kit) mirabegron 50 mg tablet,extended 50 mg PO DAILY #30 tabs 08/08/20 03/01/23 Rx release 24 hr (Myrbetriq) oxybutynin chloride 10 mg 10 mg PO DAILY #30 tabs 10/05/20 03/01/23 Rx tablet,extended release 24 hr (Ditropan XL) blood sugar diagnostic (OneTouch #300 ea 06/25/21 01/29/23 Rx Ultra Test strips) lancets 33 gauge (OneTouch Delica #300 ea 06/25/21 01/29/23 Rx Lancets) empagliflozin 10 mg tablet 10 mg PO DAILY #90 tabs 04/16/22 03/01/23 Rx (Jardiance) escitalopram oxalate 10 mg tablet See Rx Instructions .Route 04/16/22 03/01/23 Rx .COMPLEX #135 tabs triamterene 37.5 See Rx Instructions .Route 04/16/22 03/01/23 Rx mg-hydrochlorothiazide 25 mg tablet .COMPLEX #90 tabs metformin 500 mg tablet,extended 500 mg PO BID #180 tabs 04/21/22 03/01/23 Rx release 24 hr gabapentin 300 mg capsule 900 mg (3 x 300 mg) PO TID 90 days 07/28/22 03/01/23 Rx #810 caps simvastatin 10 mg tablet 10 mg PO QPM #90 tabs 09/30/22 03/01/23 Rx hydroxyzine HCl 10 mg tablet 10 - 20 mg (1 - 2 x 10 mg) PO TID 10/29/22 03/01/23 Rx PRN anxiety #180 tabs primidone 50 mg tablet 100 mg (2 x 50 mg) PO TID 90 days 01/02/23 03/01/23 Rx #540 tabs propranolol 160 mg capsule,24 160 mg PO HS #90 caps 01/02/23 03/01/23 Rx hr,extended release Patient History Medical History BPH with obstruction/lower urinary tract symptoms Renal lesion Nephrolithiasis Gout Allergic rhinitis CRPS (complex regional pain syndrome), lower limb Cyst of joint of left hand Dysuria Elevated serum globulin level Former smoker Quit 1994 Mixed hyperlipidemia Parkinsonism Tarsal tunnel syndrome Vitamin D deficiency, unspecified Surgical History H/O local excision of skin lesion (09/12/20) 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 Brother No problems noted. Sister No problems noted. Other Has no children Denies family history of Ovarian cancer Prostate cancer Social History Smoking Status: Former smoker Tobacco Type: Cigarettes packs per day: 0.25; Cigarettes Per Day: 4 cigs/day; Second Hand Exposure: No; Do You Dip or Chew Tobacco: No; Hx Alcohol Use: No Hx Substance Use: No Preferred Language: Dominican Communication Ability: Effective Visual Impairment: No Limitations Hearing Ability: Normal Blower Insulator Required: No Beliefs That Will Affect Care: None marital status: Single Current Living Situation: Alone current occupational status: disabled How many Children do You have: 0 Feels Safe at Home: Yes Childhood Exposure to Second-Hand Smoke: No Diet: regular caffeine: No during the past year weight has: remained stable Dental Care, Regularly: Yes Physical Activity Frequency: Daily Seatbelt Use: always Sunscreen Use: No Do you think of yourself as: straight/heterosexual Gender Identity: Male Assistive Devices: Brace/Splint/Immobilizer and Crutches Review of Systems Review of Systems: 12 point review of systems negative exce pt for otherwise indicated. Physical Exam Constitutional: well developed and well nourished; no acute distress Eyes: + anicteric sclerae; pupils not irregula r Respiratory: normal respiratory effort; no respiratory distress, does not use accessory muscles and no cough Cardiovascular: well perfused Gastrointestinal (Abdomen): Inspection/Auscultation: abdomen normal to inspection; abdomen not distended Musculoskeletal: Extremities: extremities normal to inspection Skin: normal turgor; no rashes and no lesions Neurologic: moves all extremities and awake Psychiatric: Orientation: alert and oriented x 3 Results & Data Vital Signs (Past 12 Hours) Vital Signs Temp Pulse Pulse Resp BP BP Pulse Ox 03/01/23 17:24 67 16 119/65 94 03/01/23 17:08 65 03/01/23 15:50 69 16 113/59 L 93 03/01/23 15:00 93 03/01/23 13:04 74 03/01/23 12:20 36.7 C 78 18 169/85 H 95 O2 Del Method 03/01/23 17:24 Room Air 03/01/23 17:08 03/01/23 15:50 Room Air 03/01/23 15:00 Room Air 03/01/23 13:04 03/01/23 12:20 Room Air PG Care Time/CCT Total # of Minutes Spent Total Time Spent with Patient: Total time spent is greater than 50% in coordination of care (as documented) at patient's floor/unit and/or counseling patient: Coding Level of Care Code 46064 OP VST NEW MOD 45-59 MIN Diagnoses Acute UTI N39.0 Kidney stone on left side N20.0
[2023-03-01] MEDS ORDERED: DIATRIZOATE MEGLUMINE 30% 100ML VIAL INSTIL PRN (17:55)
[2023-03-01] MEDS ORDERED: PROPOFOL IV EMULSION 10 MG/ML 20 ML VIAL IV ONE (18:02)
[2023-03-01] MEDS ORDERED: fentaNYL citrate PF 100 MCG/2 ML VIAL ONE (18:03)
[2023-03-01] MEDS ORDERED: MIDAZOLAM HCL 1 MG/ML 2ML VIAL ONE (18:03)
--- NOTE | 2023-03-01 18:48 | Operative Report ---
PG Post Operative Report Pre & Post Diagnosis Operation Date: 03/01/23 17:45 Pre-Op Diagnosis: Left ureteral stone, UTI Post-Op Diagnosis: Left ureteral stone, UTI I identified the patient and participated in the time-out.: Yes Procedure Operation Date: 03/01/23 17:45 Actual Procedures p Cystoscopy, left retrograde pyelogram, left ureteral stent placementCarlos Smith MD Surgeon Carlos Smith MD Supervisor Seaming None Estimated Blood Loss 0 Findings Consistent with Post-Op Diagnosis Specimens None Drains 6 South African by 26 cm double-J ureteral stent in the left ureter Anesthesia Type MAC Complications none Disposition Accompanied Patient To Recovery: Yes Disposition: Recovery Room Indications This is a 62-year-old male who presents to the emergency department on 03/01/2023 with a left ureteral stone and concern for urinary tract infection. He is brought to the OR today for left ureteral stent placement. Description of Procedure The patient was identified in the holding area and informed consent was confirmed. He was marked on the left side, then was taken to the operating room where anesthesia was initiated. He was placed in the dorsal lithotomy position with all pressure points appropriately padded. He was prepped and draped in the usual sterile fashion and a preoperative timeout was performed. A well-lubricated cystoscope was inserted per urethra and panendoscopy was performed. The pendulous urethra was normal with no strictures or mucosal abnormalities. The prostate was of normal size. His bladder appeared grossly normal with no tumors or stones appreciated. The urine in the bladder was fairly turbid with a snowstorm appearance. This was evacuated and flushed out a couple times through the cystoscope sheath. Ureteral orifices were in orthotopic position bilaterally. A 5 South African open-ended catheter was inserted and used to intubate the left ureteral orifice. A retrograde pyelogram was performed using Cystografin. There was some J hooking of the distal left ureter. To minimize pyelovenous backflow, did not fully evaluate the upper urinary tract. A 0.038 inch zip wire was advanced up to the kidney under fluoroscopic guidance. Over the wire, a 6 South African x 26 cm double-J ureteral stent was advanced. When the wire was removed, there was a good curl in the kidney under fluoroscopic guidance. A curl was visualized in the bladder with the cystoscope. There was drainage of turbid urine through the stent. At this point the bladder was drained and all instrumentation was removed. The patient was then awakened from anesthesia and was brought to the PACU in stable condition. I attest to the content of the Intraoperative Record and any orders documented therein. Any exceptions are noted below.
--- NOTE | 2023-03-01 19:20 | Anesthesiology Progress Note ---
Date of Service March 01, 2023 Anesthesia Post Procedure Vital Signs Vital Signs: Temp Pulse Pulse Resp BP BP Pulse Ox 03/01/23 19:10 37.1 C 70 16 129/65 93 03/01/23 19:00 69 18 122/65 99 03/01/23 18:53 36.1 C L 72 16 120/64 98 03/01/23 17:24 67 16 119/65 94 03/01/23 17:08 65 03/01/23 15:50 69 16 113/59 L 93 03/01/23 15:00 93 03/01/23 13:04 74 03/01/23 12:20 36.7 C 78 18 169/85 H 95 O2 Del Method O2 Flow Rate 03/01/23 19:10 Room Air 03/01/23 19:00 Oxymask 3 03/01/23 18:53 Oxymask 6 03/01/23 17:24 Room Air 03/01/23 17:08 03/01/23 15:50 Room Air 03/01/23 15:00 Room Air 03/01/23 13:04 03/01/23 12:20 Room Air Pain Intensity Left Flank: Pain Intensity: 6 Transfer of Care Handoff Completed per policy Notes Mental Status: alert / awake / arousable Patient Amnestic to Procedure: Yes Nausea / Vomiting: adequately controlled Pain: adequately controlled Airway Patency, RR, SpO2: stable & adequate BP & HR: stable & adequate Hydration State: stable & adequate Anesthetic Complications: no major complications apparent
--- NOTE | 2023-03-01 19:33 | Fluoroscopy Report ---
FL KUB CLINICAL HISTORY: STONE?Left-sided ureteroscope COMPARISON STUDY: CT 03/01/2023 FLUOROSCOPY TIME: 5.7 seconds FLUOROSCOPY IMAGES: 2 EXPOSURE DOSE: 2.62 mGy FINDINGS: A left-sided ureteroscope with guidewire is present. The last image demonstrates a left ure teral stent, proximal portion appearing to be in satisfactory position. The distal portion is not christie ged. IMPRESSION: Fluoroscopic assistance as above. ACT 112: Negative or not required by law. Electronically signed by: Uri Cohen M.D. 03/01/2023 7:32 PM
[2023-03-01] MEDS ORDERED: hydrOXYzine HCl 10 MG TAB PO PRN (19:53)
[2023-03-01] MEDS ORDERED: ONDANSETRON INJ 2 MG/ML 2 ML VIAL IV PRN (19:53)
[2023-03-01] MEDS ORDERED: HYDROmorphone INJ 1 MG/ML SYRINGE IV PRN (19:53)
[2023-03-01] MEDS: INSULIN ASPART PER UNIT CHARGE SC SCH (20:36)
[2023-03-01] MEDS: HYDROmorphone INJ 0.5 MG/0.5 ML SYR IV PRN (20:38)
[2023-03-01] MEDS: PLASMA-LYTE A 1,000 ML IV SCH (20:38)
[2023-03-01] MEDS: PROPRANOLOL HCL LA 80 MG CAPCR PO SCH (21:35)
[2023-03-01] MEDS: LANTUS PER UNIT CHARGE SQ SCH (21:35)
[2023-03-01] MEDS: PRIMIDONE 50 MG TAB PO SCH (21:35)
[2023-03-01] MEDS: SIMVASTATIN 10 MG TAB PO SCH (21:35)
[2023-03-01] MEDS: GABAPENTIN 300 MG CAP PO SCH (21:35)
[2023-03-01] MEDS: cefTRIAXone SODIUM 2,000 MG in DEXTROSE 5 % MINI-B 50 ML IV SCH (21:35)
[2023-03-02] MEDS: PLASMA-LYTE A 1,000 ML IV SCH (06:18)
[2023-03-02 07:45] LABS: BUN Creatinine Ratio 16.5 (10-20); Calcium 8.7 mg/dl (8.6-10.3); Creatinine Clr Calc Pharmacy 111.5 ml/min; Est GFR (African American) 95.2 ml/min; Est GFR (Non-African American) 82.2 ml/min; Potassium 3.6 mmol/L (3.5-5.1)
--- NOTE | 2023-03-02 07:48 | Urology Progress Note ---
Date of Service March 02, 2023 Assessment & Plan (1) Acute UTI: (2) Kidney stone on left side: Plan 62-year-old male admitted with a left ureteral stone and concern for infection. - POD #1 s/p Cystoscopy, left retrograde pyelogram, left ureteral stent placement with Dr. Smith. - Tolerating the ureteral stent with minimal bother. - Tmax 37.7C this morning. Hemodynamically stable. - Labs reviewed - WBC 16.30-16.80 today and normal renal function. Continue to trend. - Urine culture prelim gram negative bacilli. On Ceftriaxone. - Walsh catheter placed overnight due to retention- draining appropriately. Recommend maintaining catheter for 1 week for bladder rest and maximum decompression while treating the infection. - Continue antibiotics and tailor as culture data becomes available. - Continue supportive care and pain management as needed. - Will arrange outpatient follow-up with our service to discuss definitive stone treatment after the infection has been treated. Can also arrange void trial at that time if the catheter is not removed before then. - Expected clinical course reviewed with patient, all questions were answered - Urology will follow peripherally. Please contact us with any questions or concerns. Admission and Anticipated Discharge Date Admission Date: March 01, 2023 Subjective Patient examined at bedside this AM. Awake, sitting up in bed on arrival. No acute distress. Walsh catheter placed overnight due to retention with 1L of output. Urine is tea colored. He denies any significant pain or discomfort at present. Reports some dysuria. Denies fevers, chills, nausea, vomiting. Review of Systems Constitutional: as per Subjective / HPI Gastrointestinal: as per Subjective / HPI Genitourinary: + as per Subjective / HPI Physical Exam Constitutional: no acute distress Respiratory: no respiratory distress and no labored breathing Neurologic: moves all extremities and awake Psychiatric: A+Ox3, euthymic affect Genitourinary: Walsh catheter intact Results & Data Vital Signs (Past 12 Hours) Vital Signs Temp Pulse Pulse Resp BP BP Pulse Ox 03/02/23 07:39 37.7 C H 83 20 103/65 95 03/02/23 04:48 36.6 C 82 18 102/63 94 03/02/23 03:08 37.3 C 83 18 100/62 93 03/02/23 02:05 37.5 C 86 18 94/56 L 91 03/01/23 22:30 36.8 C 99 H 18 130/71 91 03/01/23 21:31 36.9 C 87 18 136/65 96 03/01/23 20:32 36.7 C 71 18 159/74 H 95 03/01/23 20:07 36.6 C 71 18 127/75 93 O2 Del Method 03/02/23 07:39 Room Air 03/02/23 04:48 Room Air 03/02/23 03:08 Room Air 03/02/23 02:05 Room Air 03/01/23 22:30 Room Air 03/01/23 21:31 Room Air 03/01/23 20:32 Room Air 03/01/23 20:07 Room Air PG Care Time/CCT Total # of Minutes Spent Total Time Spent with Patient: Total time spent is greater than 50% in coordination of care (as documented) at patient's floor/unit and/or counseling patient: Coding Level of Care Code 11795 SUB INP/OBS CARE 2/35MIN Diagnoses Acute UTI N39.0 Kidney stone on left side N20.0
[2023-03-02 08:12] LABS: Basophils # (auto) 0.04 K/uL (0.00-0.20); Basophils % (auto) 0.2 %; Eosinophils # (auto) 0.01 K/uL (0.00-0.50); Eosinophils % (auto) 0.1 %; Hematocrit (blood only) 41.1 % (42.0-52.0); Hemoglobin 13.8 g/dl (14.0-18.0); Immature Granulocytes # (auto) 0.11 K/uL (0.01-0.20); Immature Granulocytes % (auto) 0.7 %; Lymphocytes # (auto) 0.64 K/uL (1.20-3.40); Lymphocytes % (auto) 3.8 %; Mean Corpuscular Hemoglobin 30.7 pg (25.0-34.0); Mean Corpuscular Hgb Conc 33.6 g/dL (32.0-36.0); Mean Corpuscular Volume 91.3 fL (80.0-100.0); Mean Platelet Volume 10.3 fL (9.4-12.4); Monocytes # (auto) 1.51 K/uL (0.11-0.59); Neutrophils # (auto) 14.49 K/uL (1.40-6.50); Neutrophils % (auto) 86.2 %; Platelet Count 173 K/uL (130-400); RDW Coefficient of Variation 13.9 % (11.5-14.5); RDW Standard Deviation 46.7 fL (36.4-46.3)
[2023-03-02] MEDS: LANTUS PER UNIT CHARGE SQ SCH ×2 (08:27→21:14)
[2023-03-02] MEDS: INSULIN ASPART PER UNIT CHARGE SC SCH ×4 (08:27→21:15)
[2023-03-02] MEDS: VIBEGRON 75 MG TAB PO SCH (08:28)
[2023-03-02] MEDS: ESCITALOPRAM OXALATE 10 MG TAB PO SCH (08:28)
[2023-03-02] MEDS: GABAPENTIN 300 MG CAP PO SCH ×3 (08:29→21:14)
[2023-03-02] MEDS: OXYBUTYNIN CHLORIDE XL 5 MG TABCR PO SCH (08:30)
[2023-03-02] MEDS: PRIMIDONE 50 MG TAB PO SCH ×3 (08:30→21:14)
[2023-03-02 08:42] LABS: Estimated Average Glucose 174 mg/dl; Hemoglobin A1C 7.7 % (4.5-5.6)
[2023-03-02] MEDS: ACETAMINOPHEN 325 MG TAB PO PRN ×2 (10:45→21:14)
--- NOTE | 2023-03-02 12:55 | Hospitalist Progress Note ---
Date of Service March 02, 2023 Assessment & Plan (1) Kidney stone on left side: Plan: -CT A/P: obstructing 6 mm calculus of the left ureter; mildmoderate left-sided hydroureteronephrosis -Appreciate urology consult -Left Ureteral Stent Placed with Dr. Smith on 03/01 -Tylenol and Diliduadid prn fo pain -Strain urine -Continue daily oxybutynin (2) Acute UTI: Plan: Past urine cultures that showed E. coli with some resistance to beta-lactams and fluoroquinolones -WBC 16.8 , temp 37.7C -Started on Zosyn 4.5 g IV in the ED -- > Switch to ceftriaxone 2 g IV daily; antibiotics de-escalated as patient does not appear septic, and is having minimal urinary discomfort -Urine culture pending, suspect E.coli will continue Ceftriaxone until sensitivities (3) Type 2 diabetes mellitus: Plan: 03/02: A1c 7.7 Hold metformin, Jardiance Continue gabapentin for neuropathy BSG ACHS; q6h while NPO Lantus 11u BID SSI w/ goal range 110-150mg/dL, CF 20, carb ratio 10 (4) Nausea: Plan: Zofran 4 mg IV q6h as needed for nausea (5) Essential tremor: Plan: Continue primidone (6) Anxiety: Plan: Continue escitalopram Continue hydroxyzine as needed Plan DVT proph: start heparin tonight Dispo: Continued inpatient stay, hopeful for discharge tomorrow Admission and Anticipated Discharge Date Admission Date: March 01, 2023 Supervising Physician Co-Signing Physician Notes Attending Attestation - Chart reviewed, care plan d/w RONNI Ybarra. I agree w/ the hopson components of her documentation. Reasonable to change to IV rocephin pending final urine cx results (previous cultures with e.coli sens to rocephin). Remains stable hemodynamically. Cr just shy of 1 today; leukocytosis noted. Repeat labs am. Kervin Mena MD Subjective patient sitting up in bed. Reports pain to left side of back. Has not had any medications for this yet. States it does not wrap around into the front. Pain/irritation with ureteral stent. Reports good appetite. ambulates with 1 crutch at baseline. Denies chest pain or shortness of breath Review of Systems Review of Systems: All systems reviewed & are unremarkable except as noted in Subjective Physical Exam Physical Exam: General: WN/WD, NAD, VS as above Resp: normal respiratory effort, lungs clear to auscultation CV: RRR, no murmur, Abd: normal bowel sounds, non tender, no hepatosplenomegaly. Back: left sided tenderness Extremities: Moves all extremities : gonzalez catheter in place Neuro: A&O x3, Results & Data Results & Data Vital Signs (Past 12 Hours) Vital Signs Temp Pulse Resp BP Pulse Ox O2 Del Method 03/02/23 07:39 37.7 C H 83 20 103/65 95 Room Air 03/02/23 04:48 36.6 C 82 18 102/63 94 Room Air 03/02/23 03:08 37.3 C 83 18 100/62 93 Room Air 03/02/23 02:05 37.5 C 86 18 94/56 L 91 Room Air Laboratory Results CBC and chemistry reviewed PG Care Time/CCT Total # of Minutes Spent Total Time Spent with Patient: Total time spent is greater than 50% in coordination of care (as documented) at patient's floor/unit and/or counseling patient: Coding Level of Care Code 43959 SUB INP/OBS CARE 2/35MIN Diagnoses Kidney stone on left side N20.0 Acute UTI N39.0 Type 2 diabetes mellitus E11.9 Nausea R11.0 Essential tremor G25.0 Anxiety F41.9
--- NOTE | 2023-03-02 15:15 | Electrocardiogram Report ---
Test Reason : Blood Pressure : / mmHG Vent. Rate : 068 BPM Atrial Rate : 068 BPM P-R Int : 182 ms QRS Dur : 100 ms QT Int : 404 ms P-R-T Axes : 018 -03 001 degrees QTc Int : 429 ms Normal sinus rhythm Normal ECG When compared with ECG of 22-SEP-2007 11:30, Criteria for Septal infarct are no longer Present Confirmed by Mando Phan ([id number]) on 03/02/2023 3:14:50 PM Referred By: REFERRED SELF Confirmed By:Mando Phan
[2023-03-02 19:54] VITALS: RESP 16; TEMP 99
[2023-03-02] MEDS: HYDROmorphone INJ 0.5 MG/0.5 ML SYR IV PRN (19:58)
[2023-03-02] MEDS: PROPRANOLOL HCL LA 80 MG CAPCR PO SCH (21:13)
[2023-03-02] MEDS: SIMVASTATIN 10 MG TAB PO SCH (21:14)
[2023-03-02] MEDS: HEPARIN SOD 5,000 UNIT/0.5 ML VIAL SQ SCH (21:14)
[2023-03-02] MEDS: cefTRIAXone SODIUM 2,000 MG in DEXTROSE 5 % MINI-B 50 ML IV SCH (21:15)
[2023-03-03 07:10] LABS: Basophils # (auto) 0.04 K/uL (0.00-0.20); Basophils % (auto) 0.5 %; Eosinophils # (auto) 0.18 K/uL (0.00-0.50); Eosinophils % (auto) 2.1 %; Hematocrit (blood only) 37.9 % (42.0-52.0); Hemoglobin 12.6 g/dl (14.0-18.0); Immature Granulocytes # (auto) 0.02 K/uL (0.01-0.20); Immature Granulocytes % (auto) 0.2 %; Lymphocytes # (auto) 0.92 K/uL (1.20-3.40); Lymphocytes % (auto) 10.5 %; Mean Corpuscular Hemoglobin 30.3 pg (25.0-34.0); Mean Corpuscular Hgb Conc 33.2 g/dL (32.0-36.0); Mean Corpuscular Volume 91.1 fL (80.0-100.0); Monocytes # (auto) 1.05 K/uL (0.11-0.59); Neutrophils # (auto) 6.52 K/uL (1.40-6.50); Neutrophils % (auto) 74.7 %; Platelet Count 128 K/uL (130-400); RDW Coefficient of Variation 13.9 % (11.5-14.5); RDW Standard Deviation 46.5 fL (36.4-46.3); Red Blood Count 4.16 M/uL (4.70-6.10); White Blood Count 8.73 K/ul (4.8-10.8)
[2023-03-03 07:31] VITALS: BP 120/68; O2SAT 96
[2023-03-03 07:35] LABS: BUN Creatinine Ratio 18.3 (10-20); Calcium 8.6 mg/dl (8.6-10.3); Creatinine Clr Calc Pharmacy 152.4 ml/min; Est GFR (African American) 114.9 ml/min; Est GFR (Non-African American) 99.2 ml/min; Potassium 3.2 mmol/L (3.5-5.1)
[2023-03-03] MEDS ORDERED: POTASSIUM CHLORIDE CRTAB 20 MEQ TABCR PO STA (07:57)
[2023-03-03] MEDS: INSULIN ASPART PER UNIT CHARGE SC SCH (08:40)
[2023-03-03] MEDS: LANTUS PER UNIT CHARGE SQ SCH (08:40)
[2023-03-03] MEDS: ESCITALOPRAM OXALATE 10 MG TAB PO SCH (08:50)
[2023-03-03] MEDS: OXYBUTYNIN CHLORIDE XL 5 MG TABCR PO SCH (08:51)
[2023-03-03] MEDS: VIBEGRON 75 MG TAB PO SCH (08:52)
[2023-03-03] MEDS: GABAPENTIN 300 MG CAP PO SCH (08:52)
[2023-03-03] MEDS: PRIMIDONE 50 MG TAB PO SCH (08:52)
[2023-03-03] MEDS: HEPARIN SOD 5,000 UNIT/0.5 ML VIAL SQ SCH (08:53)
--- NOTE | 2023-03-03 11:33 | Discharge Summary ---
Discharge Summary Date of Service March 03, 2023 Notes For Next Care Provider -traimterene Hydrochlorothiazide was held given his low to normal BPs. - discharge with Gonzalez catheter in place, urology requesting it remaining for 1 week - diagnosed with UTI, discharged with p.o. Augmentin Medication Changes From Visit - Augmentin 875 mg x 5 days twice daily - Pyridium for ureteral stone pain -Traimterene-HCTZ on hold Admission HPI Per Admitting Provider Librado is a 62-year-old male with PMH of anxiety, essential tremor, obesity, diabetes, and hypertension syndrome. He presented for acute onset of left flank pain that woke him up at 0400 on 03/01. He describes the pain as >10/10 at its worst; sharp, stabbing pain that is constant. No radiation. He took 1 Tylenol 500 mg this morning. Pain is exacerbated when lying down and sitting still; better with walking. Hx of kidney stones in the past, but he cannot recall when the last kidney stone was. No history of urologic intervention such as lithotripsy or stenting. No changes in diet. He reports he does not eat a very salty diet. He has not had anything to eat today. He reports he is took all of his morning medications. Of note, he has a history of diabetes and has been taking Jardiance for the past 2 years. History of diabetes on Jardiance x 2 years. He denies history of smoking, tobacco use, alcohol use, vaping, and recreational drug use. Mild hypertension at 113/59 at time of admission; vitals otherwise stable. ED course: Morphine 6 mg IV Toradol 10 mg IV Zofran 4 mg IV Zosyn 4.5 g IV NSS 2500 mL ROS: Patient endorses chills, nausea, bloating, burning with urination, neuropathy (ongoing) Patient denies fever, sweating, CP, pleuritic CP, vomiting, diarrhea, hematuria, urinary retention, saddle anesthesia. Principal Dx & Hospital Course #1 = Principal Diagnosis (1) Kidney stone on left side: urinary retention due to postprocedural complications of system -CT A/P: obstructing 6 mm calculus of the left ureter; mildmoderate left-sided hydroureteronephrosis -Appreciate urology consult -Left Ureteral Stent Placed with Dr. Smith on 03/01 -Tylenol and Pyridium for pain -Strain urine -Catheter to remain in place for 1 week -Continue daily oxybutynin (2) Acute UTI: Past urine cultures that showed E. coli with some resistance to beta-lactams and fluoroquinolones current culture growing E. coli, sensitive to Augmentin -WBC downtrending - Given Zosyn then downgraded to ceftriaxone while inpatient - Discharged with 5 days of Augmentin 875 mg twice daily (3) Type 2 diabetes mellitus: 03/02: A1c 7.7 resume home metformin and Jardiance Continue gabapentin for neuropathy (4) Essential tremor: Continue primidone (5) Anxiety: Continue escitalopram Continue hydroxyzine as needed Plan discharged home, Gonzalez catheter in place Discharge Exam General: WN/WD, NAD, VS as above Resp: normal respiratory effort, lungs clear to auscultation CV: RRR, no murmur, Abd: normal bowel sounds, non tender, no hepatosplenomegaly Back: mild tenderness left side : gonzalez in place Neuro: A&O x3, Updated Medication List Medication Instructions Recorded Confirmed Type lancing device with lancets kit #1 ea 12/17/18 01/29/23 Rx (WorkHands DelAchieveMint Lancing Device kit) mirabegron 50 mg tablet,extended 50 mg PO DAILY #30 tabs 08/08/20 03/01/23 Rx release 24 hr (Myrbetriq) oxybutynin chloride 10 mg 10 mg PO DAILY #30 tabs 10/05/20 03/01/23 Rx tablet,extended release 24 hr (Ditropan XL) blood sugar diagnostic (WorkHands #300 ea 06/25/21 01/29/23 Rx Ultra Test strips) lancets 33 gauge ([employer] DelAchieveMint #300 ea 06/25/21 01/29/23 Rx Lancets) empagliflozin 10 mg tablet 10 mg PO DAILY #90 tabs 04/16/22 03/01/23 Rx (Jardiance) escitalopram oxalate 10 mg tablet See Rx Instructions .Route 04/16/22 03/01/23 Rx .COMPLEX #135 tabs triamterene 37.5 See Rx Instructions .Route 04/16/22 03/01/23 Rx mg-hydrochlorothiazide 25 mg tablet .COMPLEX #90 tabs metformin 500 mg tablet,extended 500 mg PO BID #180 tabs 04/21/22 03/01/23 Rx release 24 hr gabapentin 300 mg capsule 900 mg (3 x 300 mg) PO TID 90 days 07/28/22 03/01/23 Rx #810 caps simvastatin 10 mg tablet 10 mg PO QPM #90 tabs 09/30/22 03/01/23 Rx hydroxyzine HCl 10 mg tablet 10 - 20 mg (1 - 2 x 10 mg) PO TID 10/29/22 03/01/23 Rx PRN anxiety #180 tabs primidone 50 mg tablet 100 mg (2 x 50 mg) PO TID 90 days 01/02/23 03/01/23 Rx #540 tabs propranolol 160 mg capsule,24 160 mg PO HS #90 caps 01/02/23 03/01/23 Rx hr,extended release amoxicillin 875 mg-potassium 1 tab PO BID 5 days #10 tabs 03/03/23 Rx clavulanate 125 mg tablet phenazopyridine 200 mg tablet 200 mg PO TID stent pain 6 doses 03/03/23 Rx (Pyridium) #6 tabs Hospital Stay Data Consultations 03/01/23 16:05 ED Decision to Admit Stat 03/01/23 17:40 Consult Urology Routine 03/01/23 19:53 Consult Urology Routine Procedures Performed Operation Date: 03/01/23 17:45 Actual Procedures p Left Ureteral Stent Insertion, Cystoscopy, Retrogradr Pyelogram(Not Applicable) - Carlos Smith MD Diagnostic Imagining Performed 03/01/23 FL KUB Routine 03/01/23 12:47 CT abd pelvis IV con only Stat Pending Results Patient Have Any Pending Studies at Discharge: No Discharge Instructions Given to Patient (Per Discharging Provider) Mr. Joseph, Rony were hospitalized after having a kidney stone on the left side, and hydronephrosis (fluid around the kidney). This was treated with a procedure in the operating room with Dr. Smith, to place a stent in your ureter to allow fluid to drain and removal of the stones. a Gonzalez catheter was also placed, the urology team would like that to remain in for 1 week. There are instructions provided on how to care for this. You can contact the urology office about removal. During your stay it was also noted that you had a urinary tract infection. We are treating you with antibiotics here, and he will continue on antibiotics outpatient. You were prescribed Augmentin 875 mg twice a day for 5 days. I also prescribed Pyridium that you can take for stent pain. We held your triameterene-HCTZ, (BP pill), because your blood pressures were low-normal. This can be restarted after discussion with PCP/urologist. If you have any fevers, chills or worsening pain. Please contact the urologist or PCP or return to the ER. It was our pleasure taking care of you, Flaquita Ybarra PA-C Total Time Total Time Spent Total Time Spent (In Minutes): 35 Coding Level of Care Code 77024 INP/OBS DISCH >30 MIN Diagnoses Kidney stone on left side N20.0 Acute UTI N39.0 Type 2 diabetes mellitus E11.9 Essential tremor G25.0 Anxiety F41.9
[2023-03-03 11:56] VITALS: PULSE 71
[2023-03-04] MEDS ORDERED: ALBUTEROL 0.083% NEBU SOLN 3 ML VIAL NEB STA (07:18)
== END 2023-03-03 12:35 | disposition home or self-care (01) | DRG 661 ==
LOC: ED 12:14 → SUATTDRO 16:58 → SURCTR 18:03 → SUATTDRO 18:04 → 3N 18:04 → SURCTR 18:04
DX: E78.2 Mixed hyperlipidemia; F41.9 Anxiety disorder, unspecified; Z87.442 Personal history of urinary calculi; Z79.84 Long term (current) use of oral hypoglycemic drugs; N13.6 Pyonephrosis; E11.40 Type 2 diabetes mellitus with diabetic neuropathy, unspecified; G25.0 Essential tremor; Z87.440 Personal history of urinary (tract) infections; N99.89 Other postprocedural complications and disorders of genitourinary system; Z87.891 Personal history of nicotine dependence; Z79.899 Other long term (current) drug therapy; R33.8 Other retention of urine; B96.20 Unspecified Escherichia coli [E. coli] as the cause of diseases classified elsewhere; E11.65 Type 2 diabetes mellitus with hyperglycemia; R11.0 Nausea